=== PATIENT | female | born 1995 | race Caucasian/White ===

== ENCOUNTER 2021-11-26 11:25 | Inpatient (IN) ==
[2021-11-26] MEDS ORDERED: Naloxone 0.4 MG/ML INJ IVP PRN (11:51)
[2021-11-26] MEDS ORDERED: Famotidine 20 MG/2 ML VIAL IVP PRN (11:51)
[2021-11-26] MEDS ORDERED: Metoclopramide 10 MG/2 ML VIAL IVP PRN (11:51)
[2021-11-26] MEDS ORDERED: Ringers Solution, Lactated 1,000 ML IVC SCH (12:00)
[2021-11-26] MEDS ORDERED: Oxytocin 30 UNIT/503 ML BAG IVC ONE (12:14)
[2021-11-26] MEDS ORDERED: Lidocaine/EPI 1:100k 2% 20 ML VIAL INFILT ONE (12:30)
[2021-11-26 12:32] LABS: Basophils % 0.4 %; Eosinophils # 0.2 K/mcL (0.0-0.6); Eosinophils % 1.8 %; Hematocrit 36.5 % (35.3-44.9); Hemoglobin 11.9 g/dL (11.5-15.4); Immature Granulocytes % 0.8 % (0-4); Lymphocytes # 1.8 K/mcL (0.6-4.6); Mean Corpuscular HGB Conc 32.6 g/dL (31.6-35.5); Mean Corpuscular Hemoglobin 27.6 pg (28.0-33.3); Mean Corpuscular Volume 84.7 fL (83.0-100.0); Mean Platelet Volume 11.6 fL (9.4-12.4); Monocytes # 0.6 K/mcL (0.0-1.3); Monocytes % 6.8 %; Neutrophils # 6.6 K/mcL (1.6-8.9); Platelet Count 222 K/mcL (140-400); Red Blood Count 4.31 M/mcL (3.82-4.97); Red Cell Distribution Width 14.9 % (11.5-14.5); Segmented Neutrophils % 71.2 %; White Blood Count 9.2 K/mcL (4.3-11.1)
[2021-11-26 12:37] LABS: Amphetamine Screen,Urine Negative ng/mL (Cutoff=1000); Barbiturate Screen,Urine Negative ng/mL (Cutoff=200); Benzodiazepines Screen,Urine Negative ng/mL (Cutoff=200); Cannabinoid Screen,Urine Negative ng/mL (Cutoff = 50); Cocaine Screen,Urine Negative ng/mL (Cutoff= 300); Opiate Screen,Urine Negative ng/mL (Cutoff=300); Phencyclidine Screen,Urine Negative ng/mL (Cutoff=25)
[2021-11-26] MEDS ORDERED: Oxytocin 30 UNIT/503 ML BAG IVC SCH (14:47)
[2021-11-26] MEDS ORDERED: *HR* OxyCODONE Immed Rel 5 MG TABLET PO PRN (14:47)
[2021-11-26] MEDS ORDERED: Ondansetron ODT 4 MG TAB.RAPDIS SL PRN (14:47)
[2021-11-26] MEDS: Benzocaine/Menthol 56 GM AEROSOL SPRAY TP PRN (20:15)
[2021-11-26] MEDS: Ibuprofen 600 MG TABLET PO SCH (20:15)
[2021-11-26] MEDS: Lanolin 7 G OINT...G. TP PRN (20:15)
[2021-11-26] MEDS: Acetaminophen 325 MG TABLET PO SCH (20:15)
[2021-11-27] MEDS: Acetaminophen 325 MG TABLET PO SCH ×4 (03:23→19:46)
[2021-11-27] MEDS: Ibuprofen 600 MG TABLET PO SCH ×4 (03:23→19:46)
[2021-11-27 05:42] LABS: Basophils # 0.1 K/mcL (0.0-0.2); Basophils % 0.4 %; Eosinophils # 0.1 K/mcL (0.0-0.6); Eosinophils % 1.2 %; Hematocrit 33.5 % (35.3-44.9); Immature Granulocytes % 0.5 % (0-4); Lymphocytes # 1.8 K/mcL (0.6-4.6); Lymphocytes % 15.2 %; Mean Corpuscular HGB Conc 32.8 g/dL (31.6-35.5); Mean Corpuscular Hemoglobin 27.8 pg (28.0-33.3); Mean Corpuscular Volume 84.8 fL (83.0-100.0); Mean Platelet Volume 11.2 fL (9.4-12.4); Monocytes # 0.9 K/mcL (0.0-1.3); Monocytes % 7.5 %; Neutrophils # 8.6 K/mcL (1.6-8.9); Platelet Count 173 K/mcL (140-400); Red Blood Count 3.95 M/mcL (3.82-4.97); Red Cell Distribution Width 15.2 % (11.5-14.5); Segmented Neutrophils % 75.2 %; White Blood Count 11.5 K/mcL (4.3-11.1)
[2021-11-27 07:27] VITALS: TEMP 98.3
[2021-11-27] MEDS ORDERED: Prenatal Vit/FA 1 EACH TABLET PO SCH (09:00)
[2021-11-27] MEDS: Lanolin 7 G OINT...G. TP PRN (19:46)
[2021-11-27] MEDS: Benzocaine/Menthol 56 GM AEROSOL SPRAY TP PRN (19:46)
[2021-11-27 20:26] VITALS: BP 124/82; PULSE 89; O2SAT 98
== END 2021-11-27 20:35 | disposition home or self-care (01) | DRG 807 ==
LOC: 1NENULAB → OBSVTOIN 11:25 → 1NENUOBS 16:01
PROVIDERS: ADMIT Obstetrics & Gynecology; ATTEND Obstetrics & Gynecology